=== PATIENT | female | born 1985 | race Caucasian/White ===

== ENCOUNTER 2017-09-12 09:30 | Emergency (ER) | payer OTHER ==
[~2017-09-12] VITALS: Ht 172.7 cm; Wt 119.3 kg
[2017-09-12 09:35] VITALS: Ht 172.7 cm; Wt 119.3 kg
[2017-09-12 10:16] VITALS: BP 134/71
== END 2017-09-12 10:16 | disposition home or self-care (01) ==
LOC: ED 09:30
DX: H10.31 Unspecified acute conjunctivitis, right eye (principal)

== ENCOUNTER 2018-08-21 09:47 | Emergency (ER) | payer OTHER ==
[~2018-08-21] VITALS: Ht 175.3 cm; Wt 124.3 kg
[2018-08-21 09:50] VITALS: Ht 175.3 cm; Wt 124.3 kg
[2018-08-21 11:04] VITALS: BP 151/93
== END 2018-08-21 11:13 | disposition home or self-care (01) ==
LOC: ED 09:47
DX: G44.209 Tension-type headache, unspecified, not intractable (principal)
CPT/HCPCS: J1885

== ENCOUNTER 2018-08-22 23:04 | Emergency (ER) | payer OTHER ==
[~2018-08-22] VITALS: Ht 175.3 cm; Wt 126.6 kg
[2018-08-22 23:22] VITALS: BP 161/94; Ht 175.3 cm; Wt 126.6 kg
== END 2018-08-22 23:56 | disposition home or self-care (01) ==
LOC: ED 23:04
DX: J02.9 Acute pharyngitis, unspecified (principal)

== ENCOUNTER 2018-10-20 22:53 | Emergency (ER) | payer OTHER ==
[~2018-10-20] VITALS: Ht 172.7 cm; Wt 127.5 kg
[2018-10-20 22:57] VITALS: Ht 172.7 cm; Wt 127.5 kg
[2018-10-20 23:31] VITALS: BP 149/85
== END 2018-10-20 23:31 | disposition home or self-care (01) ==
LOC: ED 22:53
DX: B35.1 Tinea unguium (principal); Z98.890 Other specified postprocedural states; Z90.49 Acquired absence of other specified parts of digestive tract